=== PATIENT | female | born 1955 | race Asian ===

== ENCOUNTER 2017-08-02 06:15 | Emergency (ER) | payer OTHER, BC ==
[2017-08-02 06:58] LABS: ADD MAN DIFF? NO
[2017-08-02] MEDS: ONDANSETRON 4 MG INJ IV (07:00)
[2017-08-02 07:01] LABS: BASOPHIL # 0.1 10^3/ul (0.0-0.1); BASOPHILS % 0.8 % (0.0-2.0); EOSINOPHILS # 0.1 10^3/ul (0.0-0.5); EOSINOPHILS % 1.3 % (0.0-7.0); HEMATOCRIT 37.9 % (37.0-47.0); HEMOGLOBIN 12.2 g/dl (12.0-16.0); LYMPHOCYTES # 2.3 10^3/ul (0.8-2.9); LYMPHOCYTES % 38.5 % (15.0-51.0); MEAN CORPUSCULAR HGB CONC 32.2 g/dl (32.0-37.0); MEAN CORPUSCULAR VOLUME 71.4 fl (82.0-101.0); MEAN PLATELET VOLUME 10.9 fl (7.4-10.4); MONOCYTE # 0.4 10^3/ul (0.3-0.9); MONOCYTES % 5.8 % (0.0-11.0); NEUTROPHIL # 3.2 10^3/ul (1.6-7.5); NEUTROPHILS % 53.4 % (39.0-77.0); PLATELET COUNT 321 10^3/UL (140-415); RED BLOOD COUNT 5.31 10^6/ul (4.20-5.40); RED CELL DISTRIBUTION WIDTH 13.2 % (11.5-14.5)
[2017-08-02] MEDS: KETOROLAC 30 MG INJ IV (07:01)
[2017-08-02] MEDS: SOD CHLORIDE 0.9% 1,000 ML IV (07:01)
[2017-08-02 07:18] LABS: ALANINE AMINOTRANSFERASE 32 IU/L (13-69); ALBUMIN 4.2 g/dl (3.3-4.9); ALBUMIN/GLOBULIN RATIO 1.31; ALKALINE PHOSPHATASE 119 IU/L (42-121); AMYLASE 79 U/L (11-123); ANION GAP 14 (8-16); ASPARTATE AMINO TRANSFERASE 20 IU/L (15-46); BILIRUBIN,INDIRECT 0.8 mg/dl (0-1.1); BILIRUBIN,TOTAL 0.8 mg/dl (0.2-1.3); BLOOD UREA NITROGEN 15 mg/dl (7-20); CALCIUM 9.1 mg/dl (8.4-10.2); CARBON DIOXIDE 26 mmol/L (21-31); CHLORIDE 106 mmol/L (97-110); CREATININE 0.49 mg/dl (0.44-1.00); GLUCOSE 180 mg/dl (70-220); LIPASE 79 U/L (23-300); POTASSIUM 3.9 mmol/L (3.5-5.1); SODIUM 142 mmol/L (135-144); TOTAL PROTEIN 7.4 g/dl (6.1-8.1)
[2017-08-02] MEDS: DIPHENOXYLATE/ATROPINE TAB PO (07:23)
[2017-08-02 07:24] LABS: PROTIME 13.3 Sec (11.9-14.9)
[2017-08-02 07:25] LABS: PARTIAL THROMBOPLASTIN TIME 28.2 Sec (25.0-35.0)
[2017-08-02 07:32] LABS: TROPONIN-I < 0.012 ng/ml (0.000-0.120)
[2017-08-02] MEDS: SOD CHLORIDE 0.9% 100 ML (07:47)
[2017-08-02] MEDS: IOHEXOL 300MG/ML 150 ML BTL (07:47)
[2017-08-02 11:11] LABS: HEMOGLOBIN A1C 6.5 % (0-5.9)
== END 2017-08-02 11:45 | disposition home or self-care (01) ==
LOC: E/R 06:15
DX: K52.9 Noninfective gastroenteritis and colitis, unspecified (principal); R40.2252 Coma scale, best verbal response, oriented, at arrival to emergency department; I10 Essential (primary) hypertension; R40.2142 Coma scale, eyes open, spontaneous, at arrival to emergency department; R40.2362 Coma scale, best motor response, obeys commands, at arrival to emergency department; R07.9 Chest pain, unspecified
CPT/HCPCS: 74177; 80053; 82150; 83036; 83690; 84484; 85025; 85610; 85730; 93005; 96374; 96375; 99285-25